=== PATIENT | female | born 1965 | race Caucasian/White ===

== ENCOUNTER 2022-04-01 12:03 | Emergency (ER) | payer MEDICAID, SELFPAY ==
[2022-04-01 12:32] VITALS: BP 114/74; PULSE 73; RESP 16; TEMP 37; O2SAT 98; BMI 24.3
[2022-04-01 12:50] LABS: Appearance Urine Clear (Clear); Bilirubin Urine Negative (Negative); Blood Urine 3+ (Negative); Color Urine Yellow (Yellow); Glucose Urine Negative (Negative); Ketones Urine Negative (Negative); Leukocyte Esterase Urine 1+ (Negative); Nitrite Urine Negative (Negative); Protein Urine Negative (Negative); Specific Gravity Urine <= 1.005 (1.000-1.030); Urobilinogen Urine 0.2 (0.2-1.0); pH Urine 5.5 (5.0-8.5)
[2022-04-01 13:09] LABS: Squamous Epithelial Cell Urine Moderate (None-Few); WBC Clumps Urine Few
--- NOTE | 2022-04-01 14:36 | ED.FEMALEGU ---
HPI - Female Genitourinary General Time Seen by Provider: 14:36 Date Seen: 04/01/22 Chief complaint: Urogenital Problems, Female Stated complaint: Likely UTI Time Seen by Provider: 04/01/22 14:21 Source: patient and RN notes reviewed Mode of arrival: ambulatory Limitations: no limitations History of Present Illness HPI Narrative: Patient is a 56-year-old female coming in with dysuria, frequency, starting to see some blood. Symptoms have been within 24 hours. No abdominal pain, no fevers or chills. She had a little nausea this morning but it has not continued, no vomiting. No concern for any STI exposure. She is leaving for a trip next week and is worried. She contacted the clinic and could not get into the clinic today. No history of kidney stones. MD elicited complaint: UTI Related Data Previous Rx's Medication Instructions Recorded ciprofloxacin HCl 500 mg tablet 500 mg PO BID #10 tab 04/01/22 (Cipro) Allergies Allergy/AdvReac Type Severity Reaction Status Date / Time Penicillins Allergy Mild Unknown Verified 04/01/22 12:38 Review of Systems Narrative: As per HPI Exam Const: Vital Signs, click to edit/add: Vital Signs - 24 hr 04/01/22 12:32 Temperature 98.6 F Pulse Rate [Right Pulse Oximeter] 73 Respiratory Rate 16 Blood Pressure [Ri ght Upper Arm] 114/74 Pulse Oximetry 98 Documenting provider has reviewed patient's vital signs: yes Common normals: no apparent distress, oriented x3, no limitations, healthy appearing and alert HENMT: Common normals: normocephalic Head and scalp: normocephalic Eye: Common normals: PERRL and EOMs intact bilaterally Pupil: PERRL Resp: Common normals: normal respiratory effort, no retractions, no use of accessory muscles and clear to auscultation bilaterally Auscultation: clear to auscultation bilaterally Cardio: Common normals: regular rate, regular rhythm, S1 normal heart sound, S2 normal heart sound, no gallops, no clicks and no murmurs Rate: regular rate Rhythm: regular rhythm Heart sounds: S1 normal and S2 normal GI: Common normals: Normal to inspection, nondistended, normoactive bowel sounds present, soft to palpation, non-tender, no hepatosplenomegaly and no masses Palpation: soft and no hepatosplenomegaly : Common normals: no CVA tenderness Bladder/kidney exam: no CVA tenderness Back & Pelvis: Common normals: no CVA tenderness Neuro: Common normals: oriented x3 Sensorium/orientation: alert Course Vital Signs Vital signs: Initial Vital Signs Temperature 98.6 F 04/01/22 12:32 Temperature Source Temporal Artery Scan 04/01/22 12:32 Pulse Rate 73 04/01/22 12:32 Pulse Rhythm 04/01/22 12:32 Respiratory Rate 16 04/01/22 12:32 Blood Pressure 114/74 04/01/22 12:32 Blood Pressure Mean 87 04/01/22 12:32 Blood Pressure Position Sitting 04/01/22 12:32 Pulse Oximetry 98 04/01/22 12:32 Oxygen Delivery Method 04/01/22 12:32 Vital Signs Temperature 98.6 F 04/01/22 12:32 Pulse Rate 73 04/01/22 12:32 Respiratory Rate 16 04/01/22 12:32 Blood Pressure 114/74 04/01/22 12:32 Pulse Oximetry 98 04/01/22 12:32 Temperature 98.6 F 04/01/22 12:32 Pulse Rate 73 04/01/22 12:32 Respiratory Rate 16 04/01/22 12:32 Blood Pressure 114/74 04/01/22 12:32 Pulse Oximetry 98 04/01/22 12:32 MDM - Female Genitourinary Lab Data Attestation: I reviewed the patient's lab results. Labs: Lab Results 04/01/22 Range/Units 12:40 Urine Color Yellow (Yellow) Urine Appearance Clear (Clear) Urine pH 5.5 (5.0-8.5) Ur Specific [place] <= 1.005 (1.000-1.030) Urine Protein Negative (Negative) Urine Glucose (UA) Negative (Negative) Urine Ketones Negative (Negative) Urine Blood 3+ A (Negative) Urine Nitrite Negative (Negative) Urine Bilirubin Negative (Negative) Urine Urobilinogen 0.2 (0.2-1.0) Ur Leukocyte Esterase 1+ A (Negative) Urine RBC 10-25 A (0-2) Urine WBC 2-5 (0-5) Urine WBC Clumps Few A (None) Ur Squamous Epith Cells Moderate A (None-Few) Urine Bacteria None (None) Critical Care Time Critical Care Time Critical Care Time: No Discharge Plan Discharge Clinical Impression: Urinary tract infection Patient Disposition: Home, Self-Care Condition: Stable Instructions: Urinary Tract Infection in Women (ED) Additional Instructions: Start antibiotics as soon as you get them and take as prescribed. Push fluids. If you are worsening and are unable to take oral antibiotics because of nausea vomiting, develops severe abdominal pain or fever with this, do recommend re-evaluation. Activity Level: No Restrictions Discharge Diet: Regular Prescriptions: New ciprofloxacin HCl [Cipro] 500 mg tablet 500 mg PO BID Qty: 10 0RF Follow Up/Referrals: Bobbi Madden PA-C [Primary Care Provider] - Stand Alone Forms: [employer] Info Instructions
== END 2022-04-01 14:59 | disposition home or self-care (01) ==
LOC: ED 14:49
PROVIDERS: Emergency Provider Family Medicine; PCP Physician Assistant Medical
DX: N39.0 Urinary tract infection, site not specified (principal)
CPT/HCPCS: 81003; 81015; 87086; 99283; 99284

== ENCOUNTER 2022-06-19 14:27 | Outpatient (RCR) | payer MEDICAID, SELFPAY | END 2022-09-06 14:16 | disposition home or self-care (01) | PROVIDERS: PCP Physician Assistant Medical; Visit Provider Family Medicine | DX: M79.672 Pain in left foot (principal); M79.671 Pain in right foot; G57.63 Lesion of plantar nerve, bilateral lower limbs; Z51.89 Encounter for other specified aftercare | CPT/HCPCS: 97161; 97760; 97763 ==

== ENCOUNTER 2024-12-15 16:03 | Emergency (ER) | payer BC, SELFPAY ==
--- OUTSIDE RECORDS SUMMARY | 2024-12-15 16:06 | XMS_ITS | Data Portability ---
Author Organization [place] - [facility], autoContract - [employer] [facility] Address [address] [place] [address] Assessment Encounter Date Assessment Date Assessment LastModified by Organization Details LastModified Time 08/20/2024 08/20/2024 ASSESSMENT: Patient is a good candidate for conservative care and the prognosis is for a favorable outcome that achieves the patients' goals. We discussed etiology, activity modifications, home care, and other treatment options. Initially, it is recommended that the patient receive in-office treatment 1 times per week for 8 weeks at which time a re-evaluation will be performed to determine an appropriate change in plan. Initially, treatment will focus on joint manipulation to restore range of motion and reduce pain. We will slowly progress to therapeutic exercises and activities to improve function, strength, and stability may also be used as warranted. If the patient is not responding as expected, more invasive procedures will be discussed along with a referral. All considerations above were discussed with the patient and questions answered to satisfaction. If the patient should have any additional questions, or should the condition evolve or worsen, the patient should not hesitate to contact our office. ASSESSMENT: Patient is a good candidate for conservative care and the prognosis is for a favorable outcome that achieves the patients' goals. We discussed etiology, activity modifications, home care, and other treatment options. Initially, it is recommended that the patient receive in-office treatment 1 times per week for 8 weeks at which time a re-evaluation will be performed to determine an appropriate change in plan. Initially, treatment will focus on joint manipulation to restore range of motion and reduce pain. We will slowly progress to therapeutic exercises and activities to improve function, strength, and stability may also be used as warranted. If the patient is not responding as expected, more invasive procedures will be discussed along with a referral. All considerations above were discussed with the patient and questions answered to satisfaction. If the patient should have any additional questions, or should the condition evolve or worsen, the patient should not hesitate to contact our office. [email or web address] Not available 08/20/2024 16:01:13 10/06/2024 10/06/2024 ASSESSMENT: Patient is a good candidate for conservative care and the prognosis is for a favorable outcome that achieves the patients' goals. We discussed etiology, activity modifications, home care, and other treatment options. Initially, it is recommended that the patient receive in-office treatment 1 times per week for 8 weeks at which time a re-evaluation will be performed to determine an appropriate change in plan. Initially, treatment will focus on joint manipulation to restore range of motion and reduce pain. We will slowly progress to therapeutic exercises and activities to improve function, strength, and stability may also be used as warranted. If the patient is not responding as expected, more invasive procedures will be discussed along with a referral. All considerations above were discussed with the patient and questions answered to satisfaction. If the patient should have any additional questions, or should the condition evolve or worsen, the patient should not hesitate to contact our office. ASSESSMENT: Patient is a good candidate for conservative care and the prognosis is for a favorable outcome that achieves the patients' goals. We discussed etiology, activity modifications, home care, and other treatment options. Initially, it is recommended that the patient receive in-office treatment 1 times per week for 8 weeks at which time a re-evaluation will be performed to determine an appropriate change in plan. Initially, treatment will focus on joint manipulation to restore range of motion and reduce pain. We will slowly progress to therapeutic exercises and activities to improve function, strength, and stability may also be used as warranted. If the patient is not responding as expected, more invasive procedures will be discussed along with a referral. All considerations above were discussed with the patient and questions answered to satisfaction. If the patient should have any additional questions, or should the condition evolve or worsen, the patient should not hesitate to contact our office. [email or web address] Not available 10/07/2024 16:01:54 12/03/2024 12/03/2024 ASSESSMENT: Patient is a good candidate for conservative care and the prognosis is for a favorable outcome that achieves the patients' goals. We discussed etiology, activity modifications, home care, and other treatment options. Initially, it is recommended that the patient receive in-office treatment 1 times per week for 8 weeks at which time a re-evaluation will be performed to determine an appropriate change in plan. Initially, treatment will focus on joint manipulation to restore range of motion and reduce pain. We will slowly progress to therapeutic exercises and activities to improve function, strength, and stability may also be used as warranted. If the patient is not responding as expected, more invasive procedures will be discussed along with a referral. All considerations above were discussed with the patient and questions answered to satisfaction. If the patient should have any additional questions, or should the condition evolve or worsen, the patient should not hesitate to contact our office. ASSESSMENT: Patient is a good candidate for conservative care and the prognosis is for a favorable outcome that achieves the patients' goals. We discussed etiology, activity modifications, home care, and other treatment options. Initially, it is recommended that the patient receive in-office treatment 1 times per week for 8 weeks at which time a re-evaluation will be performed to determine an appropriate change in plan. Initially, treatment will focus on joint manipulation to restore range of motion and reduce pain. We will slowly progress to therapeutic exercises and activities to improve function, strength, and stability may also be used as warranted. If the patient is not responding as expected, more invasive procedures will be discussed along with a referral. All considerations above were discussed with the patient and questions answered to satisfaction. If the patient should have any additional questions, or should the condition evolve or worsen, the patient should not hesitate to contact our office. [email or web address] Not available 12/03/2024 16:51:04 Plan of Treatment Reminders Order Date Submit Date Provider Last Modified By Organization Details Last Modified Time Details Appointments None record ed. Lab None record ed. Referral None record ed. Procedures None record ed. Surgeries None record ed. Imaging None record ed. Medication Orders None record ed. Patient TargetsNo targets recorded. Patient InstructionsNo instructions recorded. Reason for Referral None Reported. Problems Name Problem SNOMED Code Status Onset Date Resolution Date Notes Provider Name and Address Organization Details Recorded Time Lesion of lumbar spine 115241888 Active 2024 Maverick Flores, GONZÁLEZ [address], [place], [address] , [facility] 16:01:46 Cervical segmental dysfunction 295287600 Active 2023 Farhat Connelly DC [address], [place], [address] , [facility] 4 16:01:08 Neck pain 86365726 Active 2023 Not Available [facility] 4 11:16:25 Thoracic segmental dysfunction 139736898 Active 2023 Farhat Connelly DC [address], [place], [address] , [facility] 4 16:01:08 Lumbar segmental dysfunction 535792645 Active 2023 Farhat Connelly DC [address], [place], [address] , [facility] 4 16:01:08 Low back pain 829446128 Active 2023 Farhat Connelly DC [address], [place], [address] , [facility] 4 16:01:14 Somatic dysfunction of sacral spine 598284007 Active 2023 Farhat Connelly DC [address], [place], [address] , [facility] 4 16:01:14 Problem Notes None recorded. Procedures Surgical History Date Name Laterality Status Provider Name and Address Organization Details Recorded Time 5 11679: Spinal manipulation , 3 to 4 regions completed Farhat Connelly DC [address], [place], [address], [facility] 12/03/2024 16:51:04 5 31720: Spinal manipulation , 3 to 4 regions completed Maverick Flores DC [address], [place], [address], [facility] 10/07/2024 16:02:26 4 07726: Spinal manipulation , 3 to 4 regions completed Farhat Connelly DC [address], [place], [address], [facility] 08/20/2024 16:02:36 Imaging Results None recorded. Procedure Notes None recorded. Medical Equipment None Reported. Medications Name Sig Start Date Stop Date Status Note LastModified by Organization Details LastModified Time levothyroxine 75 mcg tablet active Not Available Not Availabl e Not Available esomeprazole magnesium 40 mg capsule,delayed release active Not Available Not Available Not Available polymyxin B sulfate 10,000 unit-trimethopr im 1 mg/mL eye drops INSTILL 1 DROP IN LEFT EYE EVERY 4 HOURS active Not Available Not Available No t Available Vitals None Recorded Social History None recorded. Functional Status None recorded. Mental Status None recorded. Family History Nothing Reported. Medical History No medical history recorded. Gynecological HistoryNo gynecological history recorded. Obstetrics History GPAL:G 0 P 0 0 0 0 Past Encounters Encounter ID Performer Location Encounter Start Date Encounter Closed Date Diagnosis/Indication Diagnosis SNOMED-CT Code Diagnosis ICD10 Code Diagnosis Note [id number] Farhat Connelly DC [address] [place] [address] 08/20/2024 15:56:10 08/20/2024 16:04:02 Cervical segmental dysfunction 889307461 M99.01 Neck pain 59363040 M54.2 Thoracic s egmental dysfunction 405473805 M99.02 Lumbar seg mental dysfunction 106474609 M99.03 Low back pain 409539634 M54.50 Somatic dy sfunction of sacral spine 073007187 M99.04 [id number] Maverick Flores DC [address] [place] [address] 10/06/2024 10:12:14 10/07/2024 16:11:08 Lesion of lumbar spine 592869020 M99.01 Neck pain 66819442 M54.2 Thoracic s egmental dysfunction 766214879 M99.02 Lumbar seg mental dysfunction 133572988 M99.03 Cervical s egmental dysfunction 930554304 M99.01 Low back pain 266689785 M54.50 Somatic dy sfunction of sacral spine 448072743 M99.04 [id number] Farhat Connelly DC [facility] [place] [address] [facility] [place] [address] 12/03/2024 16:14:44 12/03/2024 16:53:38 Lesion of lumbar spine 670208636 M99.01 Neck pain 39478677 M54.2 Thoracic s egmental dysfunction 944439837 M99.02 Lumbar seg mental dysfunction 536688684 M99.03 Cervical s egmental dysfunction 419723835 M99.01 Low back pain 872800681 M54.50 Somatic dy sfunction of sacral spine 977924120 M99.04 Health Concerns Section Related Observation LastModified by Organization Detai ls LastModified Time None Recorded Concern Status LastModified by Organization Details LastModified Time None Recorded Advance Directives Directive None Recorded Payers Encounter Date Sequence Insurance Name Policy Number Policy Pandya Covered Member ID Pandya Member ID Guarantor Name 08/20/2024 1 [facility] (HMO) [id number] Kera Monroy [id number] Kera Monroy 10/06/2024 [facility] [id number] 1 Kera Monroy [id number] Kera Monroy 12/03/2024 1 [facility] [id number] Kera Monroy [id number] Kera Monroy Notes Date Note Type Note Provider Name and Address Organization Details Recorded Time 08/20/2024 text/html HPI - Cervical SpineReported bypatient.Location: right; posterior Quality:aching Severity:moderate Timing:gradual Alleviating Factors:ice Aggravating Factors:sitting; twisting/turning; damp weather; carrying Associated Symptoms:no numbness/tinglingHP I - Lumbar SpineReported bypatient.Location: left; With radiation to knee Quality:aching Severity:not changing Timing:morning Aggravating Factors:standing Alleviating Factors:ice Farhat Connelly DC [address], [place], [address], [facility] 08/20/2024 16:02:57 10/06/2024 text/html HPI - Lumbar SpineReported bypatient.Location: left; With radiation to knee Quality:aching Severity:not changing Timing:morning Aggravating Factors:standing Alleviating Factors:ice Maverick Flores DC [address], [place], [address], [facility] 10/07/2024 16:02:58 12/03/2024 text/html HPI - Lumbar SpineReported bypatient.Location: left; With radiation to knee Quality:aching Severity:not changing Timing:morning Aggravating Factors:standing Alleviating Factors:jean pierre Connelly DC [address], [place], [address], [facility] 12/03/2024 16:52:10 OBGyn Episode No OBEpisode recorded.
--- OUTSIDE RECORDS SUMMARY | 2024-12-15 16:07 | XMS_ITS | Clinical Summary ---
Author Organization [employer] [facility] Address [address] [place] [address] Care Team Providers Care Decorating Supervisor Name Role Phone Priti Andrea MD Primary Care Provide r Allergies Active Allergy Reactions Criticality Noted Date Comments Ciprofloxacin Hallucinations 12/21/2018 Strange dreams, sweats Metronidazole Nausea And Vomiting 08/25/2020 Penicillins Rash 02/13/2012 Medications multivitamin (MVI) tablet Take 1 Tablet by mouth once daily. 0 3 Active Garlic 1,000 mg cap Take by mouth. 0 3 Active Graduated Compression StockingsIndica tions:Varicose veins of both lower extremities with pain For personal use. Length: calf Strength: 20-30 mmHg 1 Packet 3 Active levothyroxine 75 mcg tabletIndicatio ns:Hypothyroidi sm (acquired) Take 1 Tablet (75 mcg) by mouth before breakfast. 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 Varicose veins of legs complicating or puerperium 11/29/2008 Anxiety state, unspecified 11/02/2007 Dysthymic disorder 10/18/2007 Pap smear for cervical cancer screening Overview (10/30/2022): 06/2018 ASCUS/HPV negative 11/2021 UNS/HPV negative 10/2022 NIL/HPV Negative Plan: Pap and HPV due 10/2027 Resolved Problems Problem Noted Date Diagnosed Date Resolved Date Supervision of high-risk pre gnancy of elderly multigravida 11/01/2008 06/13/2009 Encounters Date Type Department Care Team Description 12/09/2024 Refill [facility] [address] [place] [address] Priti Andrea MD Refill Request (Levothyroxine ) 11/15/2024 Refill [facility] [address] [place] [address] Priti Andrea MD Refill Request (Levothyroxine) from Last 3 Months Immunizations Immunization Administration Dates Next Due COVID-19 vaccine (imagine 30mcg/0.3mL) P F, V 02/21/2021,01/26/2021 Influenza RIV4 (Age 18+ Years) PRESERV FREE 10/2018 Influenza, IIV3 (Age >=3 years) 06/26/2006 MMR 09/23/2018 Td (Age >=7 Years) 02/21/2000 Tdap 06/12/2023,06/08/2012 Family History Medical History Relation Name Comments Other Father depression/suic genaro Other Son juvenile polyps Cancer-breast No Family History Relation Name Status Comments Brother 1 Alive Brother 2 Alive Father Mother Alive Sister Alive Son Social History Tobacco Use Types Packs/Day Years Used Date Smoking Tobacco: Never Passive Smoke Exposure: Never Smokeless Tobacco: Never Tobacco Cessation:Counseling Given: Yes Alcohol Use Standard Drinks/Week Comments No 0 (1 standard drink = 0.6 oz pur e alcohol) PHQ-2 Answer Date Recorded PHQ-2 TOTAL SCORE 0 06/12/2023 Social Connections Answer Date Recorded Do you often feel lonely or isolated from those around you? 0 04/30/2024 Financial Resource Strain Answer Date R ecorded Difficulty of Paying Living Expenses 3 04/30/2024 Difficulty of Paying Living Expenses Not on file 04/30/2024 Food Insecurity Answer Date Recorded Do you worry your food will run out before you are able to buy more? 1 04/30/2024 Transportation Needs Answer Date Record ed Does lack of transportation keep you from medica l appointments? 1 04/30/2024 Does lack of transportation keep you from work, meetings or getting things that you need? 1 04/30/2024 Housing Stability Answer Date Recorded What is your housing situation today? 1 04/30/2024 Utilities Answer Date Recorded Do you have trouble paying f or utilities (for example, heat, electricity, water, phone)? 1 04/30/2024 Comments No Sex and Gender Information Value Date Recorded Sex Assigned at Not on file Legal Sex Female 5:26 AM STRANDING MACHINE OPERATOR Gender Identity Not on file Sexual Orientation Not on file Obstetrics History Para Term AB IAB SAB Ectopic Multiple Livin g Live Births 6 6 5 1 0 0 0 0 0 0 0 Date Outcome GA Total Labor Labor/2nd/3rd Weight Sex Type Anes PTL Abby A1 A5 Name Clin 1994 Term 40w0 d 12h 00m/ 4.05 kg (8 lb 15 oz) F 1996 Term 40w0 d 10h 00m/ 3.49 kg (7 lb 11 oz) 1999 Term 40w0 d 10h 00m/ 3.63 kg (8 lb) 2001 Term 40w0 d 1h 30m/ 4.37 kg (9 lb 10 oz) 2003 Term 37w0 d 10h 00m/ 3.37 kg (7 lb 7 oz) 2008 M Last Filed Vital Signs Vital Sign Reading Time Taken Comments Blood Pressure 116/84 09/02/2024 10:43 AM STRANDING MACHINE OPERATOR Pulse 71 09/02/2024 10:43 AM STRANDING MACHINE OPERATOR Temperature 36.9 C (98.4 F) 04/22/2024 10:44 AM CDT Respiratory Rate 12 04/22/2024 11:50 AM CDT Oxygen Saturation 99% 09/02/2024 10:43 AM STRANDING MACHINE OPERATOR Inhaled Oxygen Concentration - - Weight 60.9 kg (134 lb 3.2 oz) 04/30/2024 1:49 P M CDT Height 158.4 cm (5' 2.36) 04/16/2024 11:28 AM C DT Body Mass Index 24.26 04/16/2024 11:28 AM CDT Plan of Treatment Upcoming Encounters Date Type Department Care Team (Late st Contact Info) Description 01/11/2025 1:50 PM CDT Office Visit [facility] [address] [facility] [address] Priti Andrea MD [address] [place] [address] Health Maintenance Due Date Last Done Comments Hepatitis C screening for ag e 18-79 1985 Pneumococcal series for age 50+ (1 of 1 - PCV) 2017 Zoster (shingles) series for age 50+ (1 of 2) 2017 COVID-19 vaccine series ( season) 2024 02/21/2021, 01/26/2021 Depression screening for age 12+ 06/12/2024 06/12/2023, 11/23/2021, 10/18/2021, Additional history exists Mammogram for age 45-75 11/03/2024 11/03/19 24, 11/27/2021, 11/01/2020, Additional history exists BMI (ht and wt on same day) for age 18+ 04/16/2025 04/16/2024, 06/12/2023, 05/22/2022, Additional history exists Influenza Vaccine (Season Ended) 2025 06/09/20 19, 06/26/2006 Colonoscopy through age 75 09/11/2027 09/11/2017, Pap test for age 21-65 10/10/2027 , 10/10/2022, 11/23/2021, Additional history exists Lipids for age 45-75 11/05/2028 11/06/2023, 06/12/2023, 01/10/2023, Additional history exists Tetanus booster 06/12/2033 06/12/2023, 1009/2011, 02/21/2000 HIV for age 15-65 Completed 09/20/2008 Tdap Completed 06/12/2023, 06/08/2012 Procedures Procedure Name Priority Date/Time Associated Diagnosis Comments LIPID PANEL W REFLEX MEASURED LDL Routine 11/06/2023 11:00 AM STRANDING MACHINE OPERATOR Hyperlipidemia, unspecified hyperlipidemia type XR MAMMO YASHIRA BILAT SCREEN Routine 11/03/2023 10:36 AM STRANDING MACHINE OPERATOR Breast cancer screening HPV HIGH RISK Routine 10/10/2022 12:40 PM STRANDING MACHINE OPERATOR Pap smear for cervical cancer screening COLONOSCOPY 09/11/2017 7:48 AM STRANDING MACHINE OPERATOR ANTI HIV 1/2 Routine 09/20/2008 2:35 PM STRANDING MACHINE OPERATOR Examination or Test from Last 3 Months or Most Recently Relevant to Health Maintenance Results * (ABNORMAL) LIPID PANEL W REFLEX MEASURED LDL (11/06/2023 11:00 AM STRANDING MACHINE OPERATOR) CHOLESTEROL,TOTAL 226(H) 100 - 199 mg/dL 11/06/2023 4:49 PM STRANDING MACHINE OPERATOR [facility] [employer] [facility] Comment: Cholesterol, Total Reference Ranges Desirable <200 mg/dL Borderline 200-239 mg/dL High >=240 mg/dL TRIGLYCERIDES 132 <150 mg/dL 11/06/2023 4:49 PM STRANDING MACHINE OPERATOR [facility] [employer] [facility]AT[facility] TRAL LABORATORY HDL CHOLESTEROL 58 >40 mg/dL 4:49 PM STRANDING MACHINE OPERATOR [facility] TRAL LAB[facility] NON-HDL CHOLESTEROL 168(H) <145 mg/dl 11/06/2023 4:49 PM STRANDING MACHINE OPERATOR [facility] CHOL/HDL RATIO 3.90 <4.50 11/06/2023 4:49 PM STRANDING MACHINE OPERATOR [facility] LDL CHOLESTEROL 142(H) <=130 mg/dL 11/06/2023 4:49 PM STRANDING MACHINE OPERATOR [facility] VLDL CHOLESTEROL 26 <=30 mg/dL 11/06/2023 4:49 PM STRANDING MACHINE OPERATOR [facility] [employer] [facility] TRAL LABORATORY PROVIDER ORDERED STATUS RANDOM 11/06/2023 4:49 PM STRANDING MACHINE OPERATOR [facility] [employer] [facility] TRAL [facility] Blood BLOOD SPECIMEN / Unknown Venipuncture / Unknown 11/06/2023 11:00 AM STRANDING MACHINE OPERATOR 11/06/2023 11:01 AM STRANDING MACHINE OPERATOR Priti Andrea MD CHEMISTRY Final Result [facility] [address] [place] [address], [place] * XR MAMMO YASHIRA BILAT SCREEN (11/03/2023 10:36 AM STRANDING MACHINE OPERATOR) Anatomical Region Laterality Modality BREASTS, Breast Left, Breast Right Bilateral Mammography Impressions 11/03/2023 3:41 PM STRANDING MACHINE OPERATOR There is no radiographic evidence for malignancy. Recommend annual mammograms. MAMMOGRAM ASSESSMENT: ACR 1 Negative PATIENTS: You will also receive a letter with your examination results in an easy to read format. If you have questions about your results, please contact your referring provider. Narrative 11/03/2023 3:41 PM STRANDING MACHINE OPERATOR For Patients: As a result of the Cures Act, medical imaging exams and procedure reports are released immediately into your electronic medical record. You may view this report before your referring provider. If you have questions, please contact your health care provider. XR MAMMO YASHIRA BILAT SCREEN [[id number]] CLINICAL HISTORY: This is an asymptomatic 58 y.o. patient. INDICATION FOR EXAM: Mammogram Screening. TECHNIQUE: CC & MLO views were obtained. This study was evaluated with the assistance of Computer-Aided Detection. Breast Tomosynthesis was used in interpretation. COMPARISON FILM: Yes [facility] FINDINGS: The breasts have scattered areas of fibroglandular density. There are no dominant masses, suspicious micro calcifications or areas of architectural distortion. Priti Andrea MD MAMMO Final Result * HPV HIGH RISK (10/10/2022 12:40 PM STRANDING MACHINE OPERATOR) TYPE 16 Negative Negative 10/15/2022 4:23 PM STRANDING MACHINE OPERATOR [facility]AL [facility] TYPE 18 Negative Negative 10/15/2022 4:23 PM STRANDING MACHINE OPERATOR [facility] TRAL LABORATORY OTHER HIGH RISK TYPES Negative Negative 10/15/2022 4:23 PM STRANDING MACHINE OPERATOR [facility] TRA LABORATORY Other (Cervical) Non-Blood / Unknown 10/10/2022 12:40 PM STRANDING MACHINE OPERATOR 10/14/2022 8:22 AM STRANDING MACHINE OPERATOR Narrative [facility] - 10/15/2022 4:23 PM STRANDING MACHINE OPERATOR HPV types 16, 18, 31, 33, 35, 39, 45, 51, 52, 56, 58, 59, 66 and 68 DNA were undetectable or below the pre-set threshold. Methodology: bttn [place] 4800 HPV Test us Priti Andrea MD MICROBIOLOGY Final Result [facility] [address] [place] [address], [place] * COLONOSCOPY (09/11/2017 7:48 AM STRANDING MACHINE OPERATOR) 09/11/2017 7:48 AM STRANDING MACHINE OPERATOR Narrative Transcriptions Jacinto Dhillon MD - 09/11/2017 8:48 AM CST Patient Name: Kera Monroy Procedure Date: 09/11/2017 Gender: Female Date of : 1965 Admit Type: Outpatient Procedure: Colonoscopy Proceduralist: Jacinto Dhillon MD , Juani Barcenas (Nurse) Indications/Pre-Op Diagnosis: Screening for colorectal malignant neoplasm, Last colonoscopy: January 2006 Medications: Fentanyl 175 micrograms IV, Midazolam 4 mgIV, The level of sedation administered wasmoderate Procedure Description: The patient had risks, benefits and alternatives explained to andgave informed consent. The patient had a stable cardiopulmonary status and judged an adequate candidate for conscious sedation. The [id number]-[id number] was passed through the anus and advanced tothe cecum, identified by appendiceal orifice and ileocecal valve. The colonoscopy was technically difficult and complex due to a redundant colon. Successful completion of the procedure was aided by applying abdominal pressure. The patient tolerated the procedure well. The quality of the bowel preparation was good. The ileocecal valve, appendiceal orifice, and rectum were photographed. Complications: No immediate complications. Estimated Blood Loss & Specimen: Estimated blood loss: none. Specimen collected - Yes and sent to Laboratory Findings: The perianal and digital rectal examinations were normal. The colon (entire examined portion) was moderately redundant. A 3 mm polyp was found in the ascending colon. The polyp was sessile. The polyp was removed with a cold biopsy forceps. Resection and retrieval were complete. The exam was otherwise without abnormality on direct and retroflexion views. Impressions/Post-Op Diagnosis: - Redundant colon. - One 3 mm polyp in the ascending colon, removed with a cold biopsy forceps. Resected and retrieved. - The examination was otherwise normal on direct and retroflexionviews. Recommendation: - Patient has a contact number available for emergencies. The signsand symptoms of potential delayed complications were discussed with the patient. Return to normal activities tomorrow. Written discharge instructions were provided to the patient. - Resume previous diet. - Continue present medications. - Await pathology results. - Repeat colonoscopy is recommended with an adult scope. Thecolonoscopy date will be determined after pathology results from today's exambecome available for review. Moderate Sedation: Moderate (conscious) sedation was administered by the endoscopy nurse and supervised by the endoscopist. The following parameters were monitored: oxygen saturation, heart rate, respiratory rate, blood pressure, adequacy of pulmonary ventilation and reponse to care. [facility] and nursing notes for moderate sedation details. Total physician intraservice time was 26 minutes. Jacinto Dhillon MD 09/11/2017 8:48:08 AM This report has been signed electronically. Note Initiated On: 09/11/2017 7:48 AM Procedure Code(s): --- Professional --- 36550, Colonoscopy, flexible; with biopsy, single or multiple Diagnosis Code(s): --- Professional --- Z12.11, Encounter for screening formalignant neoplasm of colon D12.2, Benign neoplasm of ascending colon Q43.8, Other specified congenitalmalformations of intestine CPT copyright 2016 [employer]. All rights reserved. The codes documented in this report are preliminary and upon inpatient coder reviewmay be revised to meet current compliance requirements. Scope In: 8:16:28 AM Scope Withdrawal Time 0 hours 8 minutes 44 seconds Scope Out: 8:39:09 AM us Jacinto Dhillon MD PROCEDURE ORD Final Res ult * HIV (09/20/2008 2:35 PM STRANDING MACHINE OPERATOR) ANTI HIV 1/2 Non-reacti ve [facility] Blood specimen (specimen) BLOOD SPECIMEN / Unknown 09/20/2008 2:35 PM STRANDING MACHINE OPERATOR 09/20/2008 2:27 PM STRANDING MACHINE OPERATOR Kiera Shepard MD SEND OUTS Final Result [facility] LAB[facility] INTERNAL ZIP [id number] [address] from Last 3 Months or Most Recently Relevant to Health Maintenance Insurance [employer] Care Teams Decorating Supervisor Relationship Specialty Start Date End Date Priti Andrea MD [address] [place] [address] PCP - General Family Practice 11/27/21
--- OUTSIDE RECORDS SUMMARY | 2024-12-15 16:07 | XMS_ITS | Continuity of Care Document ---
Author Organization [place] [facility] Address [address] [place] [address] Assessment Encounter Date Assessment Date Assessment LastModified by Organization Details LastModified Time 12/03/2024 12/03/2024 ASSESSMENT: Patient is a good [...] Details Recorded Time Lesion of lumbar spine 287384184 Active 2024 Maverick Flores, [address], [place], [address] , [facility]ly [facility] 5 16:01:46 Cervical segmental dysfunction 855345862 Active 2023 Farhat Connelly DC [address] [place] [address],[place], [address] , [facility]ly [facility] 4 16:01:08 Neck pain 30572718 Active 2023 Not Available [facility] 4 11:16:25 Thoracic segmental dysfunction 526413313 Active 2023 Farhat Connelly DC [address] [place] [address],[place], [address] , [facility] 4 16:01:08 Lumbar segmental dysfunction 257501220 Active 2023 Farhat Connelly DC [address] [place] [address],[address], [place], [address] , [facility] 4 16:01:08 Low back pain 343570846 Active 2023 Farhat Connelly DC [address] [place] [address],[place], [address] , [facility] 4 16:01:14 Somatic dysfunction of sacral spine 207667031 Active 2023 Farhat Connelly DC [address] [place] [address],#[address], [address] , [facility] 4 16:01:14 Problem Notes None recorded. Procedures Surgical History Date Name Laterality Status Provider Name and Address Organization Details Recorded Time 5 62962: Spinal manipulation , 3 to 4 regions completed Farhat Connelly DC [address], [place], [address], [facility] 12/03/2024 16:51:04 5 18447: Spinal manipulation , 3 to 4 regions completed Maverick Flores DC [address], [place], [address], [facility] 10/07/2024 16:02:26 4 [address]: Spinal manipulation , 3 to 4 regions completed Farhat Connelly DC [address] [place] [address], [place], [address], [facility] 08/20/2024 16:02:36 Imaging Results [...] SNOMED-CT Code Diagnosis ICD10 Code Diagnosis Note [id number] [facility] [address] [place] [address] [facility] [place] [place] [address] 12/03/2024 16:14:44 12/03/2024 16:53:38 Lesion of lumbar spine 086747773 M99.01 Neck pain 06452791 M54.2 Thoracic s egmental dysfunction 620378666 M99.02 Lumbar seg mental dysfunction 767837094 M99.03 Cervical s egmental dysfunction 345857503 M99.01 Low back pain 766896268 M54.50 Somatic dy sfunction of sacral spine 657822680 M99.04 Health Concerns Section Related Observation LastModified by Organization Detai ls LastModified Time None Recorded Concern Status LastModified by Organization Details LastModified Time None Recorded Payers Encounter Date Sequence Insurance Name Policy Number Policy Pandya Covered Member ID Pandya Member ID Guarantor Name 12/03/2024 1 [facility] Kera Monroy [id number] Kera Monroy Notes Date Note Type Note Provider Name and Address Organization Details Recorded Time 12/03/2024 text/html HPI - Lumbar SpineReported bypatient.Location: left; With radiation to knee Quality:aching Severity:not changing Timing:morning Aggravating Factors:standing Alleviating Factors:jean pierre Connelly DC [address], [place], [address], [facility] - [facility] 12/03/2024 16:52:10 OBGyn Episode No OBEpisode recorded.
[2024-12-15 16:17] VITALS: BP 117/76; PULSE 82; RESP 16; TEMP 36.9; O2SAT 98; BMI 24.2
--- NOTE | 2024-12-15 16:57 | CRLHL7_ITS ---
For Patients: As a result of the Cures Act, medical imaging exams and procedure reports are released immediately into your electronic medical record. You may view this report before your referring provider. If you have questions, please contact your health care provider. INDICATION: Chest pain TECHNIQUE: Chest radiograph 2 views COMPARISON: None FINDINGS: Mediastinum: The mediastinum is normal in appearance. The heart silhouette is normal in size and morphology. Lung: Both lungs are unremarkable in appearance. No sign of pleural effusion seen. No pneumothorax is identified. Bone and Soft tissue: Unremarkable for age. IMPRESSION: 1. No acute cardiopulmonary disease is seen. Dictated by: Jc Walton MD @ 12/15/2024 17:38:00 (Electronically Signed)
--- NOTE | 2024-12-15 17:26 | ED.SOB ---
HPI - SOB/Dyspnea General Date Seen: 12/15/24 Chief Complaint: Shortness of Breath/Dyspnea Stated Complaint: difficulty breathing, feeling tingly Time Seen by Provider: 12/15/24 16:31 Source: patient Mode of arrival: ambulatory Limitations: no limitations History of Present Illness HPI Narrative: Patient is a 59-year-old female with no pertinent medical problems and only takes levothyroxine for hypothyroidism presenting to the emergency department for an episode of shortness of breath. She states while she was riding her bike she suddenly accidentally swallowed a bug. She started coughing and spit out after that she started having severe shortness of breath, chest tightness and lightheadedness. She states symptoms lasted for about 3 minutes and she had to stop writing her bike and laid down for symptoms to improve. They have not gone away completely but she no longer feels short of breath. Does have some mild discomfort now and epigastric/lower sternal region. Denies ever having symptoms like this. No history of heart disease. No history of blood clots. Denies any recent travel. Denies fevers, chills, headache, dizziness, diarrhea, constipation. Not aware of any sick contacts. No other concerns noted at this time. Related Data Home Medications ?Medication ?Instructions ?Recorded ?Confirmed levothyroxine 75 mcg tablet 75 mcg PO DAILY 12/15/24 12/15/24 Previous Rx's ?Medication ?Instructions ?Recorded ciprofloxacin HCl 500 mg tablet 500 mg PO BID #10 tabs 04/01/22 (Cipro) Allergies Allergy/AdvReac Type Severity Reaction Status Date / Time Penicillins Allergy Mild Unknown Verified 12/15/24 16:20 Review of Systems Status of ROS: Reports: 10 or more systems reviewed and unremarkable except as noted in History and below [facility] Medical History No significant past medical history Social History Smoking Status: Never smoker How often do you have a drink containing alcohol: never AUDIT-C Alcohol total score: 0 Non-prescribed substance use: denies use service: No Exam Narrative: Exam Narrative: Const: Well-nourished, Well-developed, in mild distress Eyes: PERRL, no conjunctival injection, and symmetrical lids HENT: Atraumatic external nose and ears. Moist mucous membranes. Neck: Symmetric, trachea midline, No thyromegaly. CVS: RRR, No murmurs or gallops. Peripheral pulses 2+ and equal in all extremities RESP: Unlabored respiratory effort. Clear to auscultation bilaterally. GI: Nontender/Nondistended, No rebound or guarding. MSK:Extremities w/o deformity, Normal Active ROM Skin: Warm, Dry. No rashes or lesions. Neuro: Normal Muscle tone, No focal neurological deficits. Psych: Awake, Alert, & Oriented x3. Appropriate mood and affect. Const: Vital Signs, click to edit/add: Vital Signs - 24 hr 12/15/24 16:17 12/15/24 19:02 Temperature 98.4 F 98.1 F Pulse Rate [Pulse Oximeter] 82 65 Respiratory Rate 16 18 Blood Pressure [Ri ght Upper Arm] 117/76 127/81 Pulse Oximetry 98 98 Oxygen Delivery Me thod Room Air Room Air Course Vital Signs Vital signs: Initial Vital Signs Temperature 98.4 F 12/15/24 16:17 Temperature Source Temporal Artery Scan 12/15/24 16:17 Pulse Rate 82 12/15/24 16:17 Respiratory Rate 16 12/15/24 16:17 Blood Pressure 117/76 12/15/24 16:17 Blood Pressure Mean 89 12/15/24 16:17 Pulse Oximetry 98 12/15/24 16:17 Oxygen Delivery Method Room Air 12/15/24 16:17 Vital Signs Temperature 98.4 F 12/15/24 16:17 Pulse Rate 82 12/15/24 16:17 Respiratory Rate 16 12/15/24 16:17 Blood Pressure 117/76 12/15/24 16:17 Pulse Oximetry 98 12/15/24 16:17 Oxygen Delivery Method Room Air 12/15/24 16:17 Temperature 98.1 F 12/15/24 19:02 Pulse Rate 65 12/15/24 19:02 Respiratory Rate 18 12/15/24 19:02 Blood Pressure 127/81 12/15/24 19:02 Pulse Oximetry 98 12/15/24 19:02 Oxygen Delivery Method Room Air 12/15/24 19:02 Medications Administered Medications: Discontinued Medications Generic Name Dose Route Start Last Admin Trade Name Freq PRN Reason Stop Dose Admin Lidocaine/Aluminum/Magnesium/Simeth 30 ml 12/15/24 17:26 12/15/24 17:40 Gi Cocktail (Visc Lido/Antacid) 30 Ml PO 12/15/24 17:27 30 ml ONCE ONE Administration MDM - SOB/Dyspnea MDM Narrative Medical decision making narrative: Patient is a 59-year-old female presenting for shortness of breath. The differential diagnosis of shortness of breath is broad and includes common etiologies such as COPD, asthma, pneumonia, viral syndrome, etc. More serious etiologies considered include PE, CHF, coronary artery disease, pneumothorax, aortic dissection, aortic aneurysm. Will do a D-dimer to look for signs of PE. Will start an EKG and troponin to look for signs of coronary artery disease. My concern for CHF is low. Also low concern for aortic dissection and aortic aneurysm. No history of COPD or asthma in this patient. With a sudden onset the symptoms it makes him feel like a viral syndrome is less likely. Will do a chest x-ray to look for signs of pneumonia or pneumothorax. Also this is some epigastric pain it could be pancreatitis or gastroenteritis. Will order a lipase. Will also try GI cocktail. CBC, BMP, liver panel, magnesium all ordered. Patient's lab work returned showing no concerning abnormalities other than a mildly elevated D-dimer at 0.68. Per years criteria PE can be ruled out. She has no hemoptysis or clinical signs of DVT. My concern for slightly developing a blood clot at the exact same time she got a bug in her throat is low. Also would expect continued symptoms rather than improvement after the GI cocktail. I did speak to her about a CTA and states that is doing way to definitively rule out at this time she declines it. Rash or lab work showed no concerning abnormalities. On my review vital signs are stable throughout time in in the emergency department. Oximetry stayed in the mid to high 90s. laboratory monitor showed no concerning arrhythmias. Chest x-ray reviewed by myself and the radiologist shows no concerning findings. EKG and troponin shows no concerning findings. I did speak to her about a repeat troponin and spoke to her that typically someone comes with a chest pain rule to to troponins 2-3 hours apart. Explained to her that I concern for an MO in her is low concern she overall is very healthy and again there unlikely or she develops heart attack at the exact same time she swell about that then improved after the GI cocktail. Repeat most likely she hat a coughing fit that exacerbated her gastric reflux and some anxiety causing her symptoms. Will discharge her home at this time. Lab Data Labs: Lab Results 12/15/24 Range/Units 17:30 WBC 5.65 (4.50-11.00) K/uL RBC 4.33 (4.00-5.20) m/uL Hgb 13.5 (12.0-16.0) gm/dL Hct 40.2 (33.0-51.0) % MCV 93 (80-100) fL MCH 31 (26-34) pg MCHC 34 (32-36) gm/dL RDW Coeff of Juan Luis 12.2 (11.5-15.5) % Plt Count 257 (140-440) K/uL Neut % (Auto) 60.2 (42.0-72.0) % Lymph % (Auto) 26.5 (20-44) % [place] % (Auto) 10.1 (0.0-11.0) % Eos % (Auto) 2.5 (0.0-7.0) % Baso % (Auto) 0.5 (0.0-3.0) % Neut # (Auto) 3.40 (1.7-7.0) K/uL Lymph # (Auto) 1.50 (0.90-2.90) K/uL [place] # (Auto) 0.60 (0.00-0.90) K/UL Eos # (Auto) 0.14 (0.00-0.50) K/uL Baso # (Auto) 0.03 (0.00-0.30) K/uL Abs Immat Gran (auto) 0.01 (0.00-0.30) K/uL Imm/Tot Granulo (auto) 0.2 % D-Dimer Quant (PE/DVT) 0.68 H (0.00-0.50) ug/ml Sodium 139 (135-149) mmol/L Potassium 4.3 (3.6-5.1) mmol/L Chloride 103 (96-114) mmol/L Carbon Dioxide 31 (20-32) mmol/L Anion Gap 5 L (7-15) mEq/L BUN 21 (7-30) mg/dL Creatinine 1.0 (0.5-1.5) mg/dL Estimated Creat Clear 51.34 Estimated GFR 66 ml/min Glucose 88 (60-115) mg/dL Calcium 9.3 (8.4-10.6) mg/dL Magnesium 2.0 (1.5-2.6) mg/dL Total Bilirubin 0.3 (0.1-1.5) mg/dL Direct Bilirubin 0.2 (0.0-0.5) mg/dL AST 25 (12-35) U/L ALT 20 (4-35) U/L Alkaline Phosphatase 56 (40-150) U/L Troponin I < 0.01 (0.01-0.04) ng/mL Total Protein 7.6 (6.0-8.3) g/dL Albumin 4.5 (3.3-5.0) g/dL Lipase 179 (23-300) U/L Imaging Data Chest x-ray: Attestation: I have reviewed the pertinent imaging results. Radiologist's impression: 1. No acute cardiopulmonary disease is seen. Dictated by: Jc Walton MD @ 12/15/2024 17:38:00 ECG Data Attestation: I personally reviewed and interpreted this ECG as follows: Prior ECG tracings: not available for review Interpretation: Normal sinus rhythm with a rate of 70 beats per minute, normal intervals, normal axis, no ST or T-wave abnormalities. Discharge Plan Discharge Clinical Impression: Atypical chest pain Patient Disposition: Home, Self-Care Condition: Stable Instructions: Noncardiac Chest Pain (ED) Additional Instructions: I cannot 6 acne what was causing symptoms at this time. Could be gastric reflux related but I do not see any concerning abnormalities on your lab work or imaging. Prescriptions: No Action ciprofloxacin HCl [Cipro] 500 mg tablet 500 mg PO BID Qty: 10 0RF levothyroxine 75 mcg tablet 75 mcg PO DAILY Follow Up/Referrals: Bobbi Madden PA-C [Primary Care Provider] - Stand Alone Forms: [employer] Info Instructions
[2024-12-15 17:40] LABS: Basophils Absolute Auto 0.03 K/uL (0.00-0.30); Basophils Percent Auto 0.5 % (0.0-3.0); Eosinophils Absolute Auto 0.14 K/uL (0.00-0.50); Eosinophils Percent Auto 2.5 % (0.0-7.0); Hematocrit 40.2 % (33.0-51.0); Hemoglobin* 13.5 gm/dL (12.0-16.0); Immature Granulocytes Abs Auto 0.01 K/uL (0.00-0.30); Immature Granulocytes Pct Auto 0.2 %; Lymphocytes Percent Auto 26.5 % (20-44); Mean Corpuscular HGB Conc 34 gm/dL (32-36); Mean Corpuscular Hemoglobin 31 pg (26-34); Mean Corpuscular Volume 93 fL (80-100); Monocytes Percent Auto 10.1 % (0.0-11.0); Neutrophils Percent Auto 60.2 % (42.0-72.0); Platelet Count* 257 K/uL (140-440); RDW Coefficient of Variation % 12.2 % (11.5-15.5); Red Blood Count 4.33 m/uL (4.00-5.20); White Blood Count* 5.65 K/uL (4.50-11.00)
[2024-12-15] MEDS: GI COCKTAIL (VISC LIDO/ANTACID) 30 ML PO (17:40)
[2024-12-15 17:45] LABS: Slide Review Reflex No
[2024-12-15 17:54] LABS: Albumin* 4.5 g/dL (3.3-5.0); Chloride* 103 mmol/L (96-114); Sodium* 139 mmol/L (135-149)
[2024-12-15 17:55] LABS: Potassium* 4.3 mmol/L (3.6-5.1)
[2024-12-15 17:57] LABS: Alanine Aminotransferase* 20 U/L (4-35); Alkaline Phosphatase* 56 U/L (40-150); Anion Gap 5 mEq/L (7-15); Aspartate Amino Transferase* 25 U/L (12-35); Bilirubin Direct* 0.2 mg/dL (0.0-0.5); Bilirubin Total* 0.3 mg/dL (0.1-1.5); Blood Urea Nitrogen* 21 mg/dL (7-30); Calcium* 9.3 mg/dL (8.4-10.6); Carbon Dioxide* 31 mmol/L (20-32); Est. Creatinine Clearance* 51.34; Estimated Glomerular Filt Rate 66 ml/min; Glucose* 88 mg/dL (60-115); Total Protein* 7.6 g/dL (6.0-8.3)
[2024-12-15 17:58] LABS: Lipase* 179 U/L (23-300)
[2024-12-15 17:59] LABS: D Dimer Quantitative* 0.68 ug/ml (0.00-0.50)
[2024-12-15 18:12] LABS: Troponin I* < 0.01 ng/mL (0.01-0.04)
[2024-12-15 19:02] VITALS: BP 127/81; PULSE 65; RESP 18; TEMP 36.7; O2SAT 98
== END 2024-12-15 20:05 | disposition home or self-care (01) ==
PROVIDERS: Emergency Provider Student in an Organized Health Care Education/Training Program; PCP Physician Assistant Medical
DX: R07.89 Other chest pain (principal)
CPT/HCPCS: 36415; 71046; 80048; 80076; 83690; 83735; 84484; 85025; 85379; 93005; 99284; 99285; A9270

== ENCOUNTER 2025-05-26 18:33 | Emergency (ER) | payer BC, SELFPAY ==
[2025-05-26] VITALS (13 sets, daily range): BP systolic 97–112; BP diastolic 66–81; PULSE 68–76; RESP 14–27; TEMP 37.2; O2SAT 95–98; BMI 23.7
--- OUTSIDE RECORDS SUMMARY | 2025-05-26 18:35 | XMS_ITS | Clinical Summary ---
Author Organization [facility] Address [address] [place] [id number] Care Team Providers Care Ingot Header Name Role Phone Priti Andrea MD Primary Care Provide r Allergies Active Allergy Reactions Criticality Noted Date Comments Ciprofloxacin Hallucinations 12/21/2018 Strange dreams, sweats Metronidazole Nausea And Vomiting 08/25/2020 Penicillins Rash 02/13/2012 Medications multivitamin (MVI) tablet Take 1 Tablet by mouth once daily. 0 3 Active Garlic 1,000 mg cap Take by mouth. 0 3 Active Graduated Compression StockingsIndicat ions:Varicose veins of both lower extremities with pain For personal use. Length: calf Strength: 20-30 mmHg 1 Packet 3 Active albuterol HFA 90 mcg/actuation inhalerIndicatio ns:SOB (shortness of breath),Bronchos pasm Inhale 1-2 Puffs by mouth every 4 hours if needed for Shortness of Breath 1st choice or Wheezing 2nd choice. 1 Each 2 5 Active inhalational spacing deviceIndication s:SOB (shortness of breath),Bronchos pasm For home use. Spacer for inhaler 1 Each 5 Active thyroid ([place] Thyroid) 30 mg tabletIndication s:Hypothyroidism (acquired) Take 1 Tablet (30 mg) by mouth once daily. 60 Tablet 5 Active Active Problems Problem Noted Date Diagnosed Date [...] Encounters Date Type Department Care Team Description 04/07/2025 3:05 PM CDT Phone Office Visit [facility] [address] [place] [address] Priti Andrea MD Medication Management (Concerns of a recall on levothyroxine. Interested in trying armour thyroid.); Telehealth ([phone]) 04/07/2025 Travel 04/07/2025 Telephone [facility] [address] [place] [address] Priti Andrea MD Medication Management 04/07/2025 Telephone [facility] [address] [place] [address] Priti Andrea MD from Last 3 Months Immunizations Immunization Administration Dates Next Due COVID-19 vaccine ([employer] 30mcg/0.3mL) P MD DaveV 02/21/2021,01/26/2021 Influenza RIV4 (Age 18+ Years) PRESERV [...] Answer Date Recorded PHQ-2 TOTAL SCORE 0 01/11/2025 Social Connections Answer Date Recorded Do you [...] on file Legal Sex Female 5:26 AM WELT TREATER Gender Identity Not on file Sexual Orientation [...] d 10h 00m/ 3.63 kg (8 lb) F 2001 Term 40w0 d 1h 30m/ 4.37 kg (9 lb 10 oz) 2003 Term 37w0 d 10h 00m/ 3.37 kg (7 lb 7 oz) 2008 M Last Filed Vital Signs Vital Sign Reading Time Taken Comments Blood Pressure 111/73 02/15/2025 1:06 PM CDT Pulse 78 02/15/2025 1:06 PM CDT Temperature 36.9 C (98.4 F) 04/22/2024 10:44 AM CDT Respiratory Rate 12 04/22/2024 11:50 AM CDT Oxygen Saturation 96% 02/15/2025 1:06 PM CDT Inhaled Oxygen Concentration - - Weight 60.9 kg (134 lb 4.8 oz) 02/15/2025 1:06 P M CDT Height 158.1 cm (5' 2.25) 01/11/2025 2:09 PM CD T Body Mass Index 24.37 01/11/2025 2:09 PM CDT Plan of Treatment Upcoming Encounters Date Type Department Care Team (Late st Contact Info) Description 06/02/2025 12:10 PM CDT Office Visit [facility] [address] [place] [address] Priti Andrea MD [address] [place] [address] Health Maintenance Due Date Last Done Comments Hepatitis C screening for ag e 18-79 1985 Hepatitis B series for 19+ ( 1 of 3 - 19+ 3-dose series) 1986 Pneumococcal series for age 50+ (1 of 1 - PCV) 2017 Zoster (shingles) series for age 50+ (1 of 2) 2017 Mammogram for age 45-75 11/03/2024 11/03/19 24, 11/27/2021, 11/01/2020, Additional history exists COVID-19 vaccine series (2024- season) 2025 02/21/2021, 01/26/2021 Influenza Vaccine (#1) 2025 06/09/2019, 2005 BMI (ht and wt on same day) for age 18+ 01/11/2026 01/11/2025, 04/16/2024, 06/12/2023, Additional history exists Depression screening for age 12+ 01/11/2026 01/11/2025, 06/12/2023, 11/23/2021, Additional history exists Colonoscopy through age 75 09/11/2027 09/11/2017, Pap test for age 21-65 10/10/2027 3, 10/10/2022, 11/23/2021, Additional history exists Lipids for age 45-75 01/11/2030 01/11/2025, 11/06/2023, 06/12/2023, Additional history exists Tetanus booster 06/12/2033 06/12/2023, 1009/2011, 02/21/2000 RSV vaccine for adults or (1 - 1-dose 75+ series) 2042 HIV for age 15-65 Completed 09/20/2008 Procedures Procedure Name Priority Date/Time Associated Diagnosis Comments LIPID PANEL W REFLEX MEASURED LDL Routine 01/11/2025 3:15 PM CDT Hyperlipidemia, unspecified hyperlipidemia type XR MAMMO YASHIRA BILAT SCREEN Routine 11/03/2023 10:36 AM WELT TREATER Breast cancer screening HPV HIGH RISK Routine 10/10/2022 12:40 PM WELT TREATER Pap smear for cervical cancer screening COLONOSCOPY 09/11/2017 7:48 AM WELT TREATER ANTI HIV 1/2 Routine 09/20/2008 2:35 PM WELT TREATER Examination or Test from Last 3 Months or Most Recently Relevant to Health Maintenance Results * (ABNORMAL) LIPID PANEL W REFLEX MEASURED LDL (01/11/2025 3:15 PM CDT) CHOLESTEROL, TOTAL 293(H) <200 mg/dL [facility] HDL CHOLESTEROL 57 > OR = 50 mg/dL [facility] [place] TRIGLYCERIDES 141 <150 mg/dL [facility] LDL-CHOLESTEROL 207(H) mg/dL (calc) [facility] Comment: LDL-C levels > or = 190 mg/dL may indicate familial hypercholesterolemia (FH). Clinical assessment and measurement of blood lipid levels should be considered for all first degree relatives of patients with an FH diagnosis. LDL Cholesterol (LDL-C) levels > or = 300 mg/dL may indicate homozygous familial hypercholesterolemia (HoFH). Untreated, these extremely high LDL-C levels can result in premature CV events and mortality. Patients should be identified early and provided appropriate interventions to reduce the cumulative LDL-C burden from . For questions about testing for familial hypercholesterolemia, please call [employer] [facility] at [phone]. Dora Zhu, et al. J National Lipid Association Recommendations for Patient-Centered Management of Dyslipidemia: Part 1 Journal of Clinical Lipidology 2015;9(2), 129-169. Feliz Antony. et al. (2014). Homozygous familial hypercholesterolaemia: new insights and guidance for clinicians to improve detection and clinical management. Heart Journal, 35(32), 2082-1521. Reference range: <100 Desirable range <100 mg/dL for primary prevention; <70 mg/dL for patients with CHD or diabetic patients with > or = 2 CHD risk factors. LDL-C is now calculated using the Jacinto-Eugene calculation, which is a validated novel method providing better accuracy than the Friedewald equation in the estimation of LDL-C. Jacinto SS et al. OLAF. 2013;310(19): 8155-4175 (http://education.Indeed/faq/SGW297) CHOL/HDLC RATIO 5.1(H) <5.0 (calc) [facility] [employer] Zeyad García NON HDL CHOLESTEROL 236(H) <130 mg/dL (calc) [facility] Comment: Non-HDL level > or = 220 is very high and may indicate genetic familial hypercholesterolemia (FH). Clinical assessment and measurement of blood lipid levels should be considered for all first-degree relatives of patients with an FH diagnosis. For patients with diabetes plus 1 major ASCVD risk factor, treating to a non-HDL-C goal of <100 mg/dL (LDL-C of <70 mg/dL) is considered a therapeutic option. Blood BLOOD SPECIMEN / Unknown 01/11/2025 3:15 PM CDT 01/11/2025 3:16 PM CDT us Priti Andrea MD CHEMISTRY Final Result [email or web address] [facility] [address] [place] [address], [facility] [address] [place] [address] * XR MAMMO YASHIRA BILAT SCREEN (11/03/2023 10:36 AM WELT TREATER) Anatomical Region Laterality Modality BREASTS, Breast Left, Breast Right Bilateral Mammography Impressions 11/03/2023 3:41 PM WELT TREATER There is no radiographic evidence for malignancy. Recommend annual mammograms. MAMMOGRAM ASSESSMENT: ACR 1 Negative PATIENTS: You will also receive a letter with your examination results in an easy to read format. If you have questions about your results, please contact your referring provider. Narrative 11/03/2023 3:41 PM WELT TREATER For Patients: As a result of the Century Cures Act, medical imaging exams and procedure reports are released immediately into your electronic medical record. You may view this report before your referring provider. If you have questions, please contact your health care provider. XR MAMMO YASHIRA BILAT SCREEN [[id number]] CLINICAL HISTORY: This is an asymptomatic 58 y.o. patient. INDICATION FOR EXAM: Mammogram Screening. TECHNIQUE: CC & MLO views were obtained. This study was evaluated with the assistance of Computer-Aided Detection. Breast Tomosynthesis was used in interpretation. COMPARISON FILM: Yes 11/27/21 [facility] 11/01/20 [facility] FINDINGS: The breasts have scattered areas of fibroglandular density. There are no dominant masses, suspicious micro calcifications or areas of architectural distortion. Priti Andrea MD MAMMO Final Result * HPV HIGH RISK (10/10/2022 12:40 PM WELT TREATER) TYPE 16 Negative Negative 10/15/2022 4:23 PM WELT TREATER [facility] TYPE 18 Negative Negative 10/15/2022 4:23 PM WELT TREATER [facility] OTHER HIGH RISK TYPES Negative Negative 10/15/2022 4:23 PM WELT TREATER [facility] Other (Cervical) Non-Blood / Unknown 10/10/2022 12:40 PM WELT TREATER 10/14/2022 8:22 AM WELT TREATER Narrative [facility] - 10/15/2022 4:23 PM WELT TREATER HPV types 16, 18, 31, 33, 35, 39, 45, 51, 52, 56, 58, 59, 66 and 68 DNA were undetectable or below the pre-set threshold. Methodology: Linda Candelaria 4800 HPV Test us Priti Andrea MD MICROBIOLOGY Final Result [facility] [address] [place] [address], [place] * COLONOSCOPY (09/11/2017 7:48 AM WELT TREATER) 09/11/2017 7:48 AM WELT TREATER Narrative Transcriptions Jacinto Dhillon MD - 09/11/2017 [...] adequate candidate for conscious sedation. The [id number] was passed through the anus and advanced [...] reponse to care. [facility] and nursing notes for moderate sedation details. Total physician intraservice time was 26 minutes. Jacinto Dhillon MD 09/11/2017 8:48:08 AM This report has been signed electronically. Note Initiated On: 09/11/2017 7:48 AM Procedure Code(s): --- Professional --- 67064, Colonoscopy, flexible; with biopsy, single or multiple Diagnosis Code(s): --- Professional --- Z12.11, Encounter for screening formalignant neoplasm of colon D12.2, Benign neoplasm of ascending colon Q43.8, Other specified congenitalmalformations of intestine CPT copyright 2016 [employer]. All rights reserved. The codes documented in this report are preliminary and upon sorting cows worker reviewmay be revised to meet current compliance requirements. Scope In: 8:16:28 AM Scope Withdrawal Time 0 hours 8 minutes 44 seconds Scope Out: 8:39:09 AM us Jacinto Dhillon MD PROCEDURE ORD Final Res ult * HIV (09/20/2008 2:35 PM WELT TREATER) ANTI HIV 1/2 Non-reacti ve [facility] Blood specimen (specimen) BLOOD SPECIMEN / Unknown 09/20/2008 2:35 PM WELT TREATER 09/20/2008 2:27 PM WELT TREATER us Kiera Shepard MD SEND OUTS Final Result [facility] INTERNAL ZIP [phone] [address] from Last 3 Months or Most Recently Relevant to Health Maintenance Insurance Care Teams Ingot Header Relationship Specialty Start Date End Date Priti Andrea MD [address] [place] [address] PCP - General Family Practice 11/27/21
--- NOTE | 2025-05-26 19:02 | ED_ITS ---
HPI - General Adult General Date Seen: 05/26/25 Chief complaint: Chest Pain Stated complaint: R shoulder pain, tingling down R arm, SOB Time Seen by Provider: 05/26/25 18:52 History of Present Illness HPI narrative: Patient is a 59-year-old woman who comes in for evaluation of pain by her left shoulder blade which started several hours prior to presentation. She says it started fairly abruptly, family members have been trying to massage the area and she does feel like there is an area that the pain seems to radiate from, but her hand was feeling little tingly and her chest was feeling little tight and so she said she felt like she needed to come in and get it checked out. She notes that in December she had an episode while riding her bike where she could not catch her breath, reading the note from that visit it sounds like she had swallowed a bug and then had some chest tightness and difficulty breathing, evaluation at that time was negative. She says she has been fine for the most part since then, she exercises regularly and does not have any exertional symptoms. Occasionally she feels short of breath when she is not exercising. She says she was told back in December that woman often have atypical symptoms if they have a heart attack, and a neighbor there is just from heart attack so she was even more concerned. She does not smoke or drink, no prior history of heart disease or DVT or PE. Related Data Home Medications ?Medication ?Instructions ?Recorded ?Confirmed No Known Home Medications 05/26/2505/09 Allergies Allergy/AdvReac Type Severity Reaction Status Date / Time Penicillins Allergy Mild Unknown Verified 05/26/25 21:08 Review of Systems Status of ROS: Reports: 10 or more systems reviewed and unremarkable except as noted in History and below [facility] Medical History No significant past medical history Social History Smoking Status: Never smoker How often do you have a drink containing alcohol: never AUDIT-C Alcohol total score: 0 Non-prescribed substance use: denies use service: No Exam Narrative: Exam Narrative: Vital signs reviewed In general, alert, nontoxic Head: Normocephalic, atraumatic. Eyes: Sclera clear. Pupils equal and reactive. ENT: Mucous membranes moist. Neck: Supple without adenopathy. Heart: Regular rate and rhythm without murmur. Lungs: Clear. No increased work of breathing, crackles or wheezes. Back: She does have an area of muscle spasm by the scapula, this is nontender to palpation. There is no overlying erythema or abscess. Abdomen: Soft, nontender to palpation. Extremities: Well perfused, pulses intact. No significant edema. Neurologic: Alert, conversant. Speech fluent, face symmetric. Moves all extremities equally. Skin: Warm, dry well perfused. Affect: Normal. Const: Vital Signs, click to edit/add: Vital Signs - 24 hr 05/26/25 18:41 05/26/25 19:01 05/26/25 19:06 Temperature 98.9 F Pulse Rate 69 Pulse Rate [Pulse Oximeter] 74 Respiratory Rate 16 Blood Pressure 109/81 Blood Pressure [Ri ght Upper Arm] 97/66 Pulse Oximetry 98 95 96 Oxygen Delivery Me thod Room Air 05/26/25 19:15 05/26/25 19:30 05/26/25 19:45 Temperature Pulse Rate 68 74 70 Pulse Rate [Pulse Oximeter] Respiratory Rate 14 14 14 Blood Pressure Blood Pressure [Ri ght Upper Arm] Pulse Oximetry 98 97 98 Oxygen Delivery Me thod 05/26/25 19:46 05/26/25 19:47 05/26/25 20:00 Temperature Pulse Rate 75 70 72 Pulse Rate [Pulse Oximeter] Respiratory Rate 27 H 16 14 Blood Pressure 106/76 107/70 Blood Pressure [Ri ght Upper Arm] Pulse Oximetry 97 97 95 Oxygen Delivery Me thod 05/26/25 20:05 05/26/25 20:15 05/26/25 20:30 Temperature Pulse Rate 72 69 76 Pulse Rate [Pulse Oximeter] Respiratory Rate 17 17 20 Blood Pressure Blood Pressure [Ri ght Upper Arm] Pulse Oximetry 96 98 95 Oxygen Delivery Me thod 05/26/25 21:59 Temperature Pulse Rate Pulse Rate [Pulse Oximeter] Respiratory Rate Blood Pressure 112/78 Blood Pressure [Ri ght Upper Arm] Pulse Oximetry Oxygen Delivery Me thod Course Course ED Course: EKG on arrival shows a normal sinus rhythm, ventricular rate of 65 beats per minute. No acute ST segment changes. Unremarkable T-waves. Overall my suspicion for acute coronary syndrome, angina, PE, dissection or other emergent cause for symptoms is fairly low. Will do a troponin D-dimer, get a chest x- ray. If those are normal, I think she can likely be discharged home. Troponin was normal x2. Chest x-ray by my review was unremarkable, radiology report negative. Her D-dimer was somewhat elevated at 0.95. When she had a D- dimer done earlier this year, it was slightly elevated at 0.68. I discussed this finding with her, we discussed that it is nonspecific but at its current level cannot really be used to rule out PE. We discussed risks and benefits of CT scan and she opted to proceed with CT of the chest with contrast. An IV was placed. I reviewed her CT scan, I did not see any evidence of PE, pneumothorax, rib fracture, or other acute findings. I reviewed the radiology report as well, read as negative. Discussed that symptoms are most likely related to muscle spasm. Ice, ibuprofen and/or Tylenol, I did prescribe some Flexeril particularly at night may be helpful. Primary care follow-up if not improving over the next 1-2 weeks, return to the ER at any time for severe or worsening symptoms. Vital Signs Vital signs: Initial Vital Signs Temperature 98.9 F 05/26/25 18:41 Temperature Source Temporal Artery Scan 05/26/25 18:41 Pulse Rate 74 05/26/25 18:41 Respiratory Rate 16 05/26/25 18:41 Blood Pressure 97/66 05/26/25 18:41 Blood Pressure Mean 76 05/26/25 18:41 Blood Pressure Position Sitting 05/26/25 18:41 Pulse Oximetry 98 05/26/25 18:41 Oxygen Delivery Method Room Air 05/26/25 18:41 Vital Signs Temperature 98.9 F 05/26/25 18:41 Pulse Rate 74 05/26/25 18:41 Respiratory Rate 16 05/26/25 18:41 Blood Pressure 97/66 05/26/25 18:41 Pulse Oximetry 98 05/26/25 18:41 Oxygen Delivery Method Room Air 05/26/25 18:41 Temperature 98.9 F 05/26/25 18:41 Pulse Rate 76 05/26/25 20:30 Respiratory Rate 20 05/26/25 20:30 Blood Pressure 112/78 05/26/25 21:59 Pulse Oximetry 95 05/26/25 20:30 Oxygen Delivery Method Room Air 05/26/25 18:41 Medications Administered Medications: Discontinued Medications Generic Name Dose Route Start Last Admin Trade Name Freq PRN Reason Stop Dose Admin Sodium Chloride 1,000 mls @ 1,000 mls/hr 05/26/25 20:45 05/26/25 22:30 0.9 % Sodium Chloride 1000 Ml IV 05/26/25 21:44 Infused .Q1H CORTNEY Infusion Medical Decision Making Lab Data Lab results reviewed: Yes I reviewed the patient's lab results Labs: Lab Results 05/26/25 05/26/25 05/26/25 Range/Units 19:02 19:10 22:00 D-Dimer Quant (PE/DVT) 0.95 H (0.00-0.50) ug/ml POC Troponin I 0.01 0.00 L (0.01-0.04) ng/ml Imaging Data Chest x-ray: Attestation: I have reviewed the pertinent imaging results. Radiologist's impression: Patient: LEANNE RODGERS Facility: [facility] Site . Site : 1965 Study: XRay-Chest 1V PORTABLE-05/26/2025 7:17:35 PM Ordering Physician: Cally Ball Final Report: INDICATION: Left back pain by shoulder blade. TECHNIQUE: Chest 1 views. COMPARISON: December 15, 2024. FINDINGS: Cardiovascular and mediastinum: Heart size and vasculature are normal in caliber and appearance. Lungs and pleural spaces: Lungs are clear. No sign of infiltrate or mass. No sign of pleural effusion. No pneumothorax. Bones and soft tissues: No significant findings. IMPRESSION: No acute or significant findings. Dictated by Steve Woodson MD @ 05/26/2025 7:38:[address] scan - head: Attestation: I have reviewed the pertinent imaging results. Radiologist's impression: Patient: Leanne Rodgers MR#: [id number] : 1965 Acct:[id number] Loc: ED Service Date: 05/26/[address]: Ordering Physician: Lizzy Alamo M.D. Date of Service: 05/26/25 Procedure(s): CT angio chest PE protocol Accession Number(s): [id number] cc: Lizzy Alamo M.D.; Bobbi Madden PA-C~ For Patients: As a result of the Cures Act, medical imaging exams and procedure reports are released immediately into your electronic medical record. You may view this report before your referring provider. If you have questions, please contact your health care provider. INDICATION: Left thoracic pain. TECHNIQUE: CT chest PE was acquired with 100 cc Omnipaque 350 IV contrast. MIP reconstructions were performed. COMPARISON: None. FINDINGS: Heart and vasculature: Contrast opacification of the pulmonary arterial tree is adequate. No sign of pulmonary embolism. Heart size is normal. Thoracic aorta and pulmonary artery are normal in caliber. Lungs and pleura: No suspicious nodules or infiltrates. No pleural effusions, pleural thickening, or pneumothorax. Lymph nodes/mediastinum: No mediastinal, hilar, or axillary adenopathy. Chest wall: No masses. Upper abdomen: No acute or significant findings. Bones: Unremarkable for age. IMPRESSION: No pulmonary embolism. No focal consolidations. Please note that all CT scans at this facility use dose modulation, iterative reconstruction, and/or weight-based dosing when appropriate to reduce radiation dose to as low as reasonably achievable. Dictated by Steve Woodson MD @ 05/26/2025 10:02:30 PM Discharge Plan Discharge Clinical Impression: Thoracic back pain Patient Disposition: Home, Self-Care Condition: Stable Instructions: Thoracic Pain (ED) Additional Instructions: Your CT scan is normal. Symptoms are likely coming from muscle spasm in your back. I would recommend using ibuprofen and/or Tylenol as needed. I have prescribed a muscle relaxer which you can try as well particularly at night. Ice is typically better for this then heat in the 1st couple of days. See primary care if not improving over the next week or so. Return any time for severe worsening symptoms. Prescriptions: No Action No Known Home Medications Follow Up/Referrals: Bobbi Madden PA-C [Primary Care Provider, Family Practice] Stand Alone Forms: MyHealth Info Instructions
[2025-05-26 19:30] LABS: Troponin, Point-of-Care* 0.01 ng/ml (0.01-0.04)
[2025-05-26 19:36] LABS: D Dimer Quantitative* 0.95 ug/ml (0.00-0.50)
--- NOTE | 2025-05-26 20:31 | CRLHL7_ITS ---
For Patients: As a result of the Century Cures Act, medical imaging exams and procedure reports are released immediately into your electronic medical record. You may view this report before your referring provider. If you have questions, please contact your health care provider. INDICATION: Left thoracic pain. TECHNIQUE: CT chest PE was acquired with 100 cc Omnipaque 350 IV contrast. MIP reconstructions were performed. COMPARISON: None. FINDINGS: Heart and vasculature: Contrast opacification of the pulmonary arterial tree is adequate. No sign of pulmonary embolism. Heart size is normal. Thoracic aorta and pulmonary artery are normal in caliber. Lungs and pleura: No suspicious nodules or infiltrates. No pleural effusions, pleural thickening, or pneumothorax. Lymph nodes/mediastinum: No mediastinal, hilar, or axillary adenopathy. Chest wall: No masses. Upper abdomen: No acute or significant findings. Bones: Unremarkable for age. IMPRESSION: No pulmonary embolism. No focal consolidations. Please note that all CT scans at this facility use dose modulation, iterative reconstruction, and/or weight-based dosing when appropriate to reduce radiation dose to as low as reasonably achievable. Dictated by Steve Woodson MD @ 05/26/2025 10:02:30 PM (Electronically Signed)
[2025-05-26 22:16] LABS: Troponin, Point-of-Care* 0.00 ng/ml (0.01-0.04)
== END 2025-05-26 23:00 | disposition home or self-care (01) ==
PROVIDERS: Emergency Provider Emergency Medicine; PCP Physician Assistant Medical
DX: M54.6 Pain in thoracic spine (principal); R06.02 Shortness of breath; R07.89 Other chest pain
CPT/HCPCS: 36415; 71045; 71275; 84484; 85379; 93005; 94761; 99284; 99285; J7030; Q9967